=== PATIENT | female | born 1975 | race Caucasian/White ===

== ENCOUNTER 2018-02-24 11:41 | Emergency (ER) | payer MEDICAID ==
[2018-02-24 11:48] VITALS: BP 104/68; PULSE 78; RESP 20; TEMP 98.3; O2SAT 98
--- NOTE | 2018-02-24 12:50 | C.PDOC ---
History Of Present Illness 41 year old female presents to the ED for evaluation of left lateral shoulder discomfort for 3-4 days. 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 She also notes shoulder dislocation in May 2017. Patient also requests a test, she states her period is late. Denies fever, numbness, tingling, trauma, falls, and any other associated symptoms. Time Seen by Provider: 02/24/18 12:29 Chief Complaint (Nursing): Back Pain History Per: Patient History/Exam Limitations: no limitations Onset/Duration Of Symptoms: Days Current Symptoms Are (Timing): Still Present Past Medical History Reviewed: Historical Data, Nursing Documentation, Vital Signs Vital Signs: Last Vital Signs Temp 98.3 F 02/24/18 11:47 Pulse 78 02/24/18 11:47 Resp 20 02/24/18 11:47 BP 104/68 02/24/18 11:47 Pulse Ox 98 02/24/18 11:47 - Medical History PMH: Depression, Schizophrenia Family History: States: Unknown Family Hx - Social History Hx Alcohol Use: No Hx Substance Use: Yes - Immunization History Hx Tetanus Toxoid Vaccination: No Hx Influenza Vaccination: No Review Of Systems Except As Marked, All Systems Reviewed And Found Negative. Constitutional: Negative for: Fever Musculoskeletal: Positive for: Shoulder Pain (left lateral shoulder discomfort.) Neurological: Negative for: Weakness, Numbness, Incoordination Physical Exam - Physical Exam Appears: Well, Non-toxic, No Acute Distress Skin: Normal Color, Warm, No Rash Head: Atraumatic, Normacephalic Eye(s): bilateral: PERRL Neck: Normal ROM, Supple Extremity: Normal ROM (of the left shoulder.), Pedal Edema (muscle tender to left later deltoid and trapezius area.), No Deformity, No Swelling Neurological/Psych: Oriented x3, Normal Speech, Normal Cognition, Normal Motor, Normal Sensation, Normal Reflexes ED Course And Treatment - Laboratory Results Lab Interpretation: Normal (ua neg.) Urine POC: Negative O2 Sat by Pulse Oximetry: 98 (RA) Pulse Ox Interpretation: Normal Medical Decision Making Medical Decision Making: L lateral deltoid/trapezius area strain prob related to 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 Plan: -Motrin. HCG Urine. -Urinalysis. Progress/Update: Patient stable for discharge home. Disposition Doctor Will See Patient In The: Office Counseled Patient/Family Regarding: Studies Performed, Diagnosis - Disposition Referrals: [facility] [Outside] [facility] [Outside] [facility] [place] [Outside] [facility] [Outside] [place] [facility] [Outside] Disposition: HOME/ ROUTINE Disposition Time: 13:06 Condition: GOOD Additional Instructions: ice packs 1/2 hour per hour motrin 400 mg every 6 hours as needed urinalysis preg tests NEGATIVE Instructions: Tests, Muscle Strain (DC) Forms: [facility] (Greek) - Clinical Impression Clinical Impression: Muscle strain, upper arm, test negative - Scribe Statement The provider has reviewed the documentation as recorded by the Scribe (Rut Chavarria) Provider Attestation: All medical record entries made by the Scribe were at my direction and personally dictated by me. I have reviewed the chart and agree that the record accurately reflects my personal performance of the history, physical exam, medical decision making, and the department course for this patient. I have also personally directed, reviewed, and agree with the discharge instructions and disposition.
[2018-02-24 12:59] LABS: HCG,QUALITATIVE URINE NEGATIVE (NEGATIVE)
[2018-02-24 13:03] LABS: SQUAMOUS EPITHIAL 1 /hpf (0-5); URINE BILIRUBIN NEGATIVE (NEGATIVE); URINE BLOOD NEGATIVE (NEGATIVE); URINE CLARITY Clear (Clear); URINE COLOR Yellow (YELLOW); URINE GLUCOSE (UA) NORMAL (Normal); URINE LEUKOCYTE ESTERASE NEG Leu/uL (Negative); URINE PROTEIN NEGATIVE (NEGATIVE); URINE UROBILINOGEN NORMAL mg/dL (0.2-1.0)
== END 2018-02-24 13:12 | disposition home or self-care (01) ==
LOC: C.ER 11:41
DX: S46.912A Strain of unspecified muscle, fascia and tendon at shoulder and upper arm level, left arm, initial encounter (principal); X50.3XXA Overexertion from repetitive movements, initial encounter; Z32.02 Encounter for pregnancy test, result negative